=== PATIENT | female | born 1965 | race African-American/Black ===

== ENCOUNTER 2019-11-27 21:22 | Emergency (ER) | payer MEDICAID ==
[~2019-11-27] VITALS: Ht 170.2 cm; Wt 88.5 kg
[2019-11-27 22:22] LABS: Basophils # (auto) 0 10 ^3/uL (0-0.2); Basophils % (auto) 0.7 % (0.0-2.0); Eosinophils # (auto) 0 10 ^3/uL (0-0.8); Eosinophils % (auto) 0.6 % (0.0-7.0); Hematocrit 39.2 % (36.0-46.0); Hemoglobin 13.6 g/dL (12.2-16.2); Lymphocytes # (auto) 2.3 10 ^3/uL (0.4-5.4); Lymphocytes % (auto) 37.4 % (10.0-50.0); Mean Corpuscular Hemoglobin 30.9 pg (28.0-32.0); Mean Corpuscular Hgb Conc. 34.7 g/dL (32.0-36.0); Mean Corpuscular Volume 89.3 fL (80.0-100.0); Monocytes # (auto) 0.4 10 ^3/uL (0-1.3); Monocytes % (auto) 6.7 % (0.0-12.0); Neutrophils # (auto) 3.3 10 ^3/uL (1.6-8.6); Neutrophils % (auto) 54.6 % (37.0-80.0); Nucleated Red Blood Cells % 0.1 %; Platelet Count (auto) 324 10^3/uL (140-450); Red Blood Cells 4.39 10^6/uL (4.0-5.20); Red Cell Distribution Width 14.1 % (11.8-14.3); White Blood Cell 6.1 10^3/uL (4.4-10.8)
[2019-11-27 22:39] LABS: Albumin 4.1 g/dL (3.4-5.0); Anion Gap 7 (5-15); Blood Urea Nitrogen 14 mg/dL (7-18); Calcium 8.8 mg/dL (8.5-10.1); Carbon Dioxide 28 mmol/L (21-32); Chloride 103 mmol/L (98-107); Glucose 111 mg/dL (74-106); Sodium 138 mmol/L (136-145)
[2019-11-27 22:46] LABS: Alanine Aminotransferase 28 U/L (13-56); Alkaline Phosphatase 114 U/L (45-117); Aspartate Aminotransferase 19 U/L (15-37); BUN/Creatinine Ratio 10.8; Bilirubin, Total 0.2 mg/dL (0.2-1.0); GFR African American 55 mL/min; GFR Non-African American 46 mL/min; Total Protein 7.5 g/dL (6.4-8.2)
[2019-11-27 23:22] LABS: Potassium 2.9 mmol/L (3.5-5.1)
[2019-11-28] MEDS ORDERED: POTASSIUM EFFERVESENT TAB 25 MEQ PO ONE
[2019-11-28] MEDS ORDERED: HYDROcodone-ACET 10/325MG TAB PO ONE (01:15)
[2019-11-28 01:40] VITALS: BP 111/68
[2019-11-28] MEDS ORDERED: methylPREDNISolone SOD SUCC 125 MG/2 ML VL ONE (05:12)
== END 2019-11-28 04:17 | disposition home or self-care (01) ==
LOC: ER 21:35
DX: R07.89 Other chest pain (principal); R51.9 Headache, unspecified; F41.9 Anxiety disorder, unspecified; I10 Essential (primary) hypertension; Z90.710 Acquired absence of both cervix and uterus
CPT/HCPCS: 36415; 70450; 71045; 80053; 84484; 85025; 93005